=== PATIENT | male | born 1995 | race Hispanic/Latino ===

== ENCOUNTER 2023-07-19 22:09 | Emergency (ER) | payer OTHER, SELFPAY ==
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
[2023-07-19 22:28] VITALS: BP 132/58; PULSE 94; RESP 14; TEMP 36.7; O2SAT 100
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
[2023-07-20] MEDS: IBUPROFEN 600 MG TABLET PO (00:27)
[2023-07-20] MEDS: ACETAMINOPHEN 325 MG TABLET 650 MG PO (00:27)
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
[2023-07-20 02:14] VITALS: BP 124/64; PULSE 78; RESP 14; O2SAT 99
== END 2023-07-20 02:16 | disposition home or self-care (01) ==
PROVIDERS: Emergency Provider Physician Assistant
DX: R07.9 Chest pain, unspecified (principal); V89.2XXA Person injured in unspecified motor-vehicle accident, traffic, initial encounter
CPT/HCPCS: 71250; 73000; 99284; A9270